=== PATIENT | male | born 2000 | race Hispanic/Latino ===

== ENCOUNTER 2021-06-12 18:41 | Emergency (ER) | payer SELFPAY ==
[2021-06-12] MEDS ORDERED: Ketorolac Tromethamine 30 MG/ML VIAL ONE (19:33)
== END 2021-06-12 20:21 | disposition home or self-care (01) ==
LOC: ERS 18:41
DX: S06.0X1A Concussion with loss of consciousness of 30 minutes or less, initial encounter (principal); Y00.XXXA Assault by blunt object, initial encounter
CPT/HCPCS: 70450; 70486; 96372; J1885